=== PATIENT | male | born 1945 | race Caucasian/White ===

== ENCOUNTER 2018-03-17 01:45 | Outpatient (CLI) | payer MEDICARE, BC, SELFPAY ==
[2018-03-17 10:54] LABS: Vitamin B12 554 pg/mL (193-986)
== END 2018-03-17 02:05 ==
PROVIDERS: PCP Emergency Medicine; Visit Provider Emergency Medicine
DX: E53.8 Deficiency of other specified B group vitamins (principal)
CPT/HCPCS: 36415; 82607

== ENCOUNTER 2018-12-03 05:31 | Outpatient (CLI) | payer MEDICARE, BC, SELFPAY ==
[2018-12-03 09:06] LABS: Anion Gap 8.8 mmol/L (3-11); BUN 21 mg/dL (7-18); CO2 26.2 mmol/L (21.0-32.0); CREATININE 1.05 mg/dL (0.70-1.30); Calcium 8.6 mg/dL (8.5-10.1); Chloride 108 mmol/L (98-107); Glucose 105 mg/dL (70-100); Potassium 4.1 mmol/L (3.5-5.1); Sodium 143 mmol/L (136-145); TSH 1.97 uIU/mL (0.358-3.74)
== END 2018-12-03 05:51 ==
PROVIDERS: PCP Emergency Medicine; Visit Provider Emergency Medicine
DX: I10 Essential (primary) hypertension (principal); I48.91 Unspecified atrial fibrillation; E03.9 Hypothyroidism, unspecified
CPT/HCPCS: 36415; 80048; 84443

== ENCOUNTER 2020-01-05 12:57 | Outpatient (REF) | payer MEDICARE, BC, SELFPAY | END 2020-01-05 13:17 | LOC: LBN 12:57 | PROVIDERS: PCP Emergency Medicine; Visit Provider Emergency Medicine | DX: E03.9 Hypothyroidism, unspecified (principal) | CPT/HCPCS: 84443 ==

== ENCOUNTER 2020-03-02 01:40 | Outpatient (CLI) | payer MEDICARE, BC, SELFPAY ==
--- NOTE | 2020-03-02 06:45 | DI.MRI_ITS ---
EXAM: MR CERVICAL SPINE WO CLINICAL HISTORY: acute right arm weakness,R29.898 TECHNIQUE: Multiplanar multisequence MRI of the cervical spine was performed without intravenous con trast. COMPARISON: No exams were available for comparison FINDINGS: BONES: Vertebral body heights are maintained. Intervertebral disc spaces are normal. Alignment is nor mal. Bone marrow signal intensity is within normal limits. Degenerative endplate signal changes are seen from C5-C6 through C7-T1. Note is made of a focus of hyperintense signal on the T1 and T2 weight ed images within the both the C4 and C5 vertebral bodies most consistent with hemangioma or fatty res ts. CERVICAL CORD: Craniovertebral junction is unremarkable. The cervical cord is normal size and signal intensity. SOFT TISSUES: Unremarkable. C2-3: No disc herniation or bulge is identified. No significant central spinal canal or neural forami nal stenosis. C3-4: Prominence of the osteophyte disc complex causing central spinal canal stenosis. There is comp ression of the spinal cord. The AP diameter of the spinal canal is 6.1 mm. Mild narrowing of the ashlee th neural foramen is noted. C4-5: Prominence of the osteophyte disc complex causing central spinal canal stenosis with compressio n of the spinal cord. The AP diameter of the central spinal canal is 6.6 mm. No significant neural foraminal stenosis is present. C5-6: No disc herniation or bulge is identified. Mild degenerative changes of the uncovertebral joint s. There is a no significant central spinal canal stenosis. Mild narrowing of the left neural ofe en is noted. No significant right neural foraminal stenosis. C6-7: Mild prominence of the osteophyte disc complex. No significant central spinal canal or neural foraminal stenosis C7-T1: Mild prominence of the osteophyte disc complex. No significant central spinal canal or neural foraminal stenosis IMPRESSION: 1. Multilevel degenerative changes in the cervical spine. 2. The findings are most marked at C3-4 and C4-C5 where there is central spinal canal stenosis. 3. Multilevel degenerative changes causing central spinal canal and neural foraminal stenosis as desc ribed above. 4. There is normal signal in the spinal cord. DATA REPOSITORY:
== END 2020-03-02 02:00 ==
PROVIDERS: PCP Emergency Medicine; Visit Provider Emergency Medicine
DX: M47.812 Spondylosis without myelopathy or radiculopathy, cervical region (principal); M48.00 Spinal stenosis, site unspecified; R29.898 Other symptoms and signs involving the musculoskeletal system
CPT/HCPCS: 72141

== ENCOUNTER 2020-12-12 14:29 | Outpatient (REF) | payer MEDICARE, BC, SELFPAY ==
[2020-12-12 15:50] LABS: Abs Immature Grans 0.01 10^3/uL (0.0-0.06); Absolute Basophil Count 0.05 10^3/uL (0.0-0.2); Absolute Eosinophil Count 0.15 10^3/uL (0.0-0.7); Absolute Lymphocyte Count 1.29 10^3/uL (1.2-3.4); Absolute Monocyte Count 0.48 10^3/uL (0.1-0.8); Absolute Neutrophil Count 3.37 10^3/uL (1.2-6.7); Basophils % 0.9; Eosinophils % 2.8; HCT 48.4 % (40.0-50.0); HGB 16.4 g/dL (13.5-17.5); Immature Grans % 0.2; Lymphocytes % 24.1; MCH 32.2 pg (27.0-33.0); MCHC 33.9 % (32.0-36.0); MCV 95.1 fL (80-95); MPV 11.1 fL (8.0-11.0); Nucleated RBC 0 %; Platelet Count 202 10^3/uL (130-400); RBC 5.09 10^6/uL (4.36-5.78); RDW 12.2 % (11.8-14.1); RDW-SD 42.5 fL; WBC 5.35 10^3/uL (4.4-10.8)
[2020-12-12 16:26] LABS: ALT 37 U/L (16-63); AST 20 U/L (15-37); Alkaline Phosphatase 70 U/L (46-116); Anion Gap 8.7 mmol/L (3-11); BUN 20 mg/dL (7-18); Bilirubin, Total 1.1 mg/dL (0.2-1.0); CO2 28.3 mmol/L (21.0-32.0); Calcium 9.1 mg/dL (8.5-10.1); Chloride 105 mmol/L (98-107); Glucose 106 mg/dL (74-106); Potassium 4.5 mmol/L (3.5-5.1); Sodium 142 mmol/L (136-145); Total Protein 7.3 g/dL (6.4-8.2); Vitamin B12 517 pg/mL (193-986)
[2020-12-13 15:12] LABS: Albumin 59.2 % (55.8-66.1); Immunotyping, Serum (See Note); Total Protein 7.2 g/dL (6.3-8.2)
[2020-12-14 08:19] LABS: Homocysteine 12.3 umol/L (5.0-13.9)
[2020-12-16 09:32] LABS: Methylmalonic Acid 0.22 nmol/mL (<=0.40)
== END 2020-12-12 14:30 | disposition home or self-care (01) ==
LOC: LBN 14:29
PROVIDERS: PCP Emergency Medicine; Visit Provider Nurse Practitioner Family
DX: G62.9 Polyneuropathy, unspecified (principal); R53.83 Other fatigue; R26.89 Other abnormalities of gait and mobility; R20.0 Anesthesia of skin
CPT/HCPCS: 80053; 80186; 83090; 82607; 84155; 84165; 85025; 86320

== ENCOUNTER 2021-01-05 11:11 | Outpatient (CLI) | payer MEDICARE, BC, SELFPAY ==
[2021-01-05 12:06] LABS: Hemoglobin A1C 5.7 % (<5.7)
[2021-01-05 13:35] LABS: Calculated LDL 117 mg/dL (<100); Cholesterol 178 mg/dL (<200); HDL Cholesterol 34 mg/dL (40-60); TSH 1.75 uIU/mL (0.36-3.74); Triglyceride 136 mg/dL (<150); Vitamin B12 608 pg/mL (193-986)
== END 2021-01-05 11:12 | disposition home or self-care (01) ==
LOC: LOS 11:12
PROVIDERS: PCP Emergency Medicine; Visit Provider Emergency Medicine
DX: E03.9 Hypothyroidism, unspecified (principal); E06.3 Autoimmune thyroiditis; E78.5 Hyperlipidemia, unspecified; E11.9 Type 2 diabetes mellitus without complications; K29.40 Chronic atrophic gastritis without bleeding
CPT/HCPCS: 36415; 80061; 82607; 83036; 84443

== ENCOUNTER 2021-07-28 02:03 | Outpatient (CLI) | payer MEDICARE, BC, SELFPAY ==
--- NOTE | 2021-07-28 11:13 | DI.RAD_ITS ---
Exam(s) XR KNEE RT 3V AP,LAT,SENTHIL EXAM: XR KNEE RT 3V AP,LAT,SENTHIL CLINICAL HISTORY: rt knee pain,. TECHNIQUE: 2D digital imaging was performed. COMPARISON: No exams were available for comparison FINDINGS: Three views of the right knee reveal no evidence of acute fracture or prominent joint effusion. Only minimal degenerative changes evident. No joint space narrowing evident. No osteophytes. Bone dens ity is age-appropriate. IMPRESSION: DATA REPOSITORY: RADIATION DOSE DELIVERED:
--- NOTE | 2021-07-28 11:14 | DI.RAD_ITS ---
Exam(s) XR LUMBAR SPINE COMPLETE EXAM: XR LUMBAR SPINE COMPLETE CLINICAL HISTORY: rt low back pain,m54.50. TECHNIQUE: 2D digital imaging was performed. COMPARISON: CR LUMBAR SPINE COMPLETE from 08/22/2012 FINDINGS: Five views of the lumbosacral spine compared to 2013. There is no evidence of compression fracture or listhesis nor pars defects. There is chronic disc sp kianna narrowing at L3-4 and L5-S1 levels and a lesser amount disc space narrowing is noted at L4-5 and the other levels. There are multilevel anterior osteophytes which have somewhat increased. Mild sco liosis convex left. This has not increased. Epicenter of the scoliosis is at L3-L4 where there is a symmetric narrowing of the right side of this disc space. This was also evident in 2013. Bone densi ty normal. No osseous lesions. Facet arthropathy noted. Bladder calculus evident, this stellate an d measuring approximately 1.9 x 2.0 cm. No obvious calcifications seen along the course of the urete rs nor over the region of the kidneys. IMPRESSION: Chronic multilevel degenerative disc disease and degenerative changes. Only mild change when compare d to 2013 DATA REPOSITORY: RADIATION DOSE DELIVERED:
--- NOTE | 2021-07-28 11:14 | DI.RAD_ITS ---
Exam(s) XR HIP RT COMPLETE AP PELVIS EXAM: XR HIP RT COMPLETE AP PELVIS CLINICAL HISTORY: rt hip pain,m25.551. TECHNIQUE: 2D digital imaging was performed. COMPARISON: CR RIGHT HIP COMPLETE from 08/22/2012 FINDINGS: There is no evidence of right hip fracture nor prominent joint space narrowing. Small ossified densi ty off the superolateral aspect of the acetabulum is unchanged from 2013. Incidentally noted is a stellate calcification in the mid pelvis, not previously present, measuring 2 x 2 cm and probably bladder calculus IMPRESSION: DATA REPOSITORY: RADIATION DOSE DELIVERED:
== END 2021-07-28 02:23 ==
PROVIDERS: PCP Emergency Medicine; Visit Provider Family Medicine
DX: M25.551 Pain in right hip (principal); M54.50 Low back pain, unspecified; M54.9 Dorsalgia, unspecified; M51.36 Other intervertebral disc degeneration, lumbar region
CPT/HCPCS: 73562; 72110; 73502

== ENCOUNTER → 2021-08-23 01:03 | Outpatient (CLI) | payer MEDICARE, BC, SELFPAY ==
--- NOTE | 2021-08-23 07:30 | DI.US_ITS ---
Exam(s) US RENAL EXAM: US RENAL CLINICAL HISTORY: possible bladder stone,n21.0 TECHNIQUE: Ultrasound of both kidneys performed using standard protocol. COMPARISON: No exams were available for comparison FINDINGS: RIGHT KIDNEY: Measures 9.2 cm in length. No cysts evident. Normal cortical thickness and corticomedullary different iation .No solid masses No intrarenal calculi nor hydronephrosis. LEFT KIDNEY: Measures 11.2 cm in length. No cysts evident. Normal cortical thickness and corticomedullary differe ntiaion. No solids masses. No intrarenal calculi nor hydonephrosis. URINARY BLADDER: Prevoid volume is 52 cc Postvoid volume is 13 cc There is suggestion of a 5 millimeter echogenic focus in the distal right ureter and the right ureter ovesical jet was not identified. Only the left ureterovesical Bladder not well visualized due to only 52 cc in the urinary bladder lumen. IMPRESSION: 1. No significant ultrasound findings in the kidneys. 2. 5 millimeter echogenic focus in the region of the distal right ureter and the right ureterovesica l jet was not witnessed (the left ureterovesical jet was witness). This may imply that this is a dis nadege right ureteral calculus. If clinically indicated follow-up CT scan can be performed DATA REPOSITORY:
== END ==
PROVIDERS: PCP Family Medicine; Visit Provider Emergency Medicine
DX: N21.0 Calculus in bladder (principal); N20.1 Calculus of ureter
CPT/HCPCS: 76770

== ENCOUNTER → 2021-11-27 12:42 | Outpatient (CLI) | payer MEDICARE, BC, SELFPAY ==
--- NOTE | 2021-11-27 09:36 | DI.RAD_ITS ---
Exam(s) XR HAND LT COMPLETE EXAM: XR HAND LT COMPLETE CLINICAL HISTORY: r/o psoriatic arthritis, SWELLING HAND, M79.89. TECHNIQUE: 2D digital imaging was performed. COMPARISON: No exams were available for comparison FINDINGS: 3 views No evidence of fracture nor subluxations nor abnormal soft tissue calcifications. No osseous lesions nor erosions. Mild degenerative changes in the DIP joints noted. Incidentally noted is increased density in the lunate bone without architectural loss. Scapholunate distance is normal. Scaphoid unremarkable. IMPRESSION: Mild degenerative changes in the IP joints. No erosions. There is a small degenerative subarticular cysts in the distal medial head of the middle phalanx of the 3rd-middle finger. Incidentally noted is increased density in the lunate bone, possibly related to an element of avascul ar necrosis. Scaphoid bone appears unremarkable. Scapholunate distance unremarkable. DATA REPOSITORY: RADIATION DOSE DELIVERED:
== END ==
PROVIDERS: PCP Family Medicine; Visit Provider Nurse Practitioner Family
DX: M19.042 Primary osteoarthritis, left hand (principal); M89.8X4 Other specified disorders of bone, hand; M85.642 Other cyst of bone, left hand; M79.89 Other specified soft tissue disorders
CPT/HCPCS: 73130

== ENCOUNTER 2021-12-19 03:19 | Outpatient (CLI) | payer MEDICARE, BC, SELFPAY ==
[2021-12-19 12:27] LABS: Abs Immature Grans 0.01 10^3/uL (0.0-0.06); Absolute Basophil Count 0.05 10^3/uL (0.0-0.2); Absolute Eosinophil Count 0.31 10^3/uL (0.0-0.7); Absolute Lymphocyte Count 1.25 10^3/uL (1.2-3.4); Absolute Monocyte Count 0.47 10^3/uL (0.1-0.8); Absolute Neutrophil Count 2.59 10^3/uL (1.2-6.7); Basophils % 1.1; Eosinophils % 6.6; HCT 43.4 % (40.0-50.0); HGB 15.1 g/dL (13.5-17.5); Immature Grans % 0.2; Lymphocytes % 26.7; MCH 32.5 pg (27.0-33.0); MCHC 34.8 % (32.0-36.0); MCV 93 fL (80-95); MPV 11.1 fL (8.0-11.0); Neutrophils % 55.4; Platelet Count 213 10^3/uL (130-400); RBC 4.65 10^6/uL (4.36-5.78); RDW 12.3 % (11.8-14.1); RDW-SD 42.3 fL; WBC 4.68 10^3/uL (4.4-10.8)
[2021-12-19 12:58] LABS: Hemoglobin A1C 5.9 % (<5.7)
[2021-12-19 13:27] LABS: ALT 33 U/L (16-63); AST 19 U/L (15-37); Albumin 3.7 g/dL (3.4-5.0); Alkaline Phosphatase 73 U/L (46-116); BUN 20 mg/dL (7-18); Bilirubin, Total 0.9 mg/dL (0.2-1.0); CREATININE 1.1 mg/dL (0.70-1.30); Chloride 106 mmol/L (98-107); Glucose 90 mg/dL (74-106); Potassium 4.2 mmol/L (3.5-5.1); Sodium 141 mmol/L (136-145); TSH (W/Ref FT4) 2.15 uIU/mL (0.36-3.74); Total Protein 6.6 g/dL (6.4-8.2); Vitamin B12 1610 pg/mL (193-986)
== END 2021-12-19 03:20 | disposition home or self-care (01) ==
LOC: LOS 03:19
PROVIDERS: PCP Family Medicine; Visit Provider Family Medicine
DX: E53.8 Deficiency of other specified B group vitamins (principal); K29.40 Chronic atrophic gastritis without bleeding; E06.3 Autoimmune thyroiditis; E66.9 Obesity, unspecified; R20.2 Paresthesia of skin; R73.01 Impaired fasting glucose; E03.9 Hypothyroidism, unspecified; Z00.00 Encounter for general adult medical examination without abnormal findings
CPT/HCPCS: 36415; 80053; 82607; 83036; 84443; 85025

== ENCOUNTER → 2022-03-22 08:13 | Outpatient (BNVA) | payer MEDICARE, BC, SELFPAY | PROVIDERS: PCP Family Medicine; Referring Provider Family Medicine; Visit Provider Psychiatry & Neurology Neurology | DX: G62.9 Polyneuropathy, unspecified (principal); M48.02 Spinal stenosis, cervical region; K29.40 Chronic atrophic gastritis without bleeding; E53.8 Deficiency of other specified B group vitamins; I48.20 Chronic atrial fibrillation, unspecified | CPT/HCPCS: 99205 ==

== ENCOUNTER → 2022-04-09 08:14 | Outpatient (BNVA) | payer MEDICARE, BC, SELFPAY | PROVIDERS: PCP Family Medicine; Referring Provider Family Medicine; Visit Provider Psychiatry & Neurology Neurology | DX: G62.9 Polyneuropathy, unspecified (principal); M48.02 Spinal stenosis, cervical region; E53.8 Deficiency of other specified B group vitamins; K29.40 Chronic atrophic gastritis without bleeding; I48.20 Chronic atrial fibrillation, unspecified | CPT/HCPCS: 95885; 95908; 99214 ==

== ENCOUNTER → 2022-07-09 13:42 | Outpatient (BNVA) | payer MEDICARE, BC, SELFPAY | PROVIDERS: PCP Family Medicine; Referring Provider Family Medicine; Visit Provider Psychiatry & Neurology Neurology | DX: G62.9 Polyneuropathy, unspecified (principal); M48.02 Spinal stenosis, cervical region; E53.8 Deficiency of other specified B group vitamins; I48.20 Chronic atrial fibrillation, unspecified; R26.9 Unspecified abnormalities of gait and mobility | CPT/HCPCS: 99214 ==

== ENCOUNTER → 2023-01-08 11:04 | Outpatient (BNVA) | payer MEDICARE, BC, SELFPAY | PROVIDERS: PCP Family Medicine; Referring Provider Family Medicine; Visit Provider Psychiatry & Neurology Neurology | DX: G62.9 Polyneuropathy, unspecified (principal); M48.02 Spinal stenosis, cervical region; I48.20 Chronic atrial fibrillation, unspecified; Z79.01 Long term (current) use of anticoagulants; E53.8 Deficiency of other specified B group vitamins | CPT/HCPCS: 99214 ==

== ENCOUNTER 2023-01-31 02:25 | Outpatient (CLI) | payer MEDICARE, BC, SELFPAY ==
[2023-01-31 12:30] LABS: Hemoglobin A1C 5.9 % (<5.7)
[2023-01-31 12:34] LABS: ALT 36 U/L (16-63); AST 21 U/L (15-37); Albumin 3.6 g/dL (3.4-5.0); Alkaline Phosphatase 75 U/L (46-116); BUN 22 mg/dL (7-18); Bilirubin, Total 1.2 mg/dL (0.2-1.0); Calcium 9.2 mg/dL (8.5-10.1); Calculated LDL 134 mg/dL (<100); Chloride 106 mmol/L (98-107); Cholesterol 197 mg/dL (<200); Estimated GFR 78.49 (mL/min/1.73m2); Glucose 120 mg/dL (74-106); HDL Cholesterol 40 mg/dL (40-60); Potassium 4.6 mmol/L (3.5-5.1); Sodium 139 mmol/L (136-145); TSH (W/Ref FT4) 2.24 uIU/mL (0.36-3.74); Total Protein 7.3 g/dL (6.4-8.2); Triglyceride 118 mg/dL (<150)
[2023-01-31 12:53] LABS: Vitamin B12 1889 pg/mL (193-986)
== END 2023-01-31 02:26 | disposition home or self-care (01) ==
LOC: LOS 02:25
PROVIDERS: Psychiatry & Neurology Neurology; PCP Family Medicine; Visit Provider Family Medicine
DX: E03.9 Hypothyroidism, unspecified (principal); R73.01 Impaired fasting glucose; E53.8 Deficiency of other specified B group vitamins; K29.40 Chronic atrophic gastritis without bleeding; E66.9 Obesity, unspecified
CPT/HCPCS: 36415; 80053; 80061; 82607; 83036; 84443

== ENCOUNTER 2023-04-26 06:26 | Day surgery (SDC) | payer MEDICARE, BC, SELFPAY ==
--- NOTE | 2023-04-26 06:14 | W.ANESPRE ---
General Info Date of Service Date Performed: 04/26/23 Height: 6 ft Weight: 128 kg Body Mass Index (BMI): 38.2 Surgical Procedure: Operation Date: 04/26/23 07:40 Proposed Procedure Side Surgeon p Cataract Extraction with IOL Implant Right Laron Gary MD Meds Allergies and Home Medications Allergies Allergy/AdvReac Type Severity Reaction Status Date / Time No Known Allergies Allergy Verified 04/26/23 06:55 Home Medication Medication Instructions Recorded ascorbic acid (vitamin C) 1,000 mg 1 tab PO DAILY 08/20/12 tablet garlic 500 mg capsule 500 mg PO DAILY 03/22/22 turmeric 400 mg capsule 400 mg PO 03/22/22 mecobalamin (vitamin B12) 1,000 1,000 mcg PO DAILY 03/27/22 mcg lozenges apixaban 5 mg tablet (Eliquis) 5 mg PO BID #60 tabs 02/20/23 diltiazem HCl 240 mg 240 mg PO DAILY #90 tab-caps 02/20/23 capsule,extended release 24 hr (Cardizem CD) levothyroxine 50 mcg tablet 50 mcg PO DAILY #90 tabs 02/20/23 (Synthroid) Current Visit Medications: Current Medications Generic Name Dose Route Start Last Admin Trade Name Freq PRN Reason Stop Dose Admin Acetaminophen 1,000 mg 04/26/23 06:00 Acetaminophen 500 Mg Tab PO 05/26/23 05:59 Q4H PRN PRN Balanced Salt Solution 500 ml 04/26/23 06:00 Balanced Salt Soln.-Plus 500 Ml Bag OP 05/26/23 05:59 DIRECTED LYRIC Miscellaneous Medication 0 ml 04/26/23 06:00 Tropicam./Phenyleph. (1/2.5%) 5 Ml Btl OD 05/26/23 05:59 DIRECTED L[facility] Miscellaneous Medication 0 ml 04/26/23 06:00 Prednisolone 1%, Moxifloxacin 0.5%, Bromfenac 0.09% 5ml Btl OD 05/26/23 05:59 DIRECTED LYRIC Tetracaine HCl 0 ml 04/26/23 06:00 Tetracaine 0.5% 4 Ml Btl OD 05/26/23 05:59 DIRECTED LYRIC PFSH Active Problems Active Problems: Problem Status Onset Code Cortical age-related cataract, right eye H25.011 Nuclear age-related cataract, right eye H25.11 Class 2 obesity due to excess calories with body mass index (BMI) of 39.0 to 39.9 in adult E66.09, Z68.39 Risk for coronary artery disease greater than 20% in next 10 years Z91.89 No blood products Z78.9 Gait disorder R26.9 Peripheral neuropathy G62.9 Cervical stenosis of spinal canal M48.02 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 normal colonoscopy in 2017. Thyroiditis, autoimmune (05/14/12) hypothyroid Tobacco Smoking/Tobacco Use Status: Never Passive smoking exposure: Yes Alcohol Alcohol Intake: never Substance Use Substance use: Never Vital Signs and Lab Results Vital Signs Most Recent Vital Signs in EMR: Temp Pulse Resp BP Pulse Ox 36.6 C 100 H 16 147/75 H 99 04/26/23 06:43 04/26/23 06:43 04/26/23 06:43 04/26/23 06:43 04/26/23 06:43 Lab Results Blood Type / Crossmatch: No Data to Display Complete Blood Count: No Data to Display Complete Metabolic Panel: No Data to Display Liver Function Panel: No Data to Display Coagulation Panel: No Data to Display Cardiac Panel: No Data to Display Arterial Blood Gas: No Data to Display Venous Blood Gas: No Data to Display Pancreas Panel: No Data to Display Thyroid Panel: No Data to Display Infectious Disease: No Data to Display Blood Cultures: No Data to Display Toxicology Panel: No Data to Display Anesthesia Assessment and Plan Anesthesia History Personal History: No History of Anesthesia Complications Family History: No Family History of Anesthesia Complications Exercise Tolerance Exercise Tolerance: Metabolic Equivalents>4 Cardiac & Pulmonary Exam Cardiac Exam: Normal S1/S2 Heart Sounds Pulmonary Exam: Clear Bilateral Breath Sounds Implantable Cardiac Device Does patient have a Pacemaker or an ICD?: No Airway Exam Known Difficult Airway: No Mallampati Class: 4 Mouth Opening: Normal (> 3cm) Thyromental Distance: Greater than 3 cm Neck Range of Motion: Full ROM Neck Circumference: Thick Teeth Condition: Normal Dentition ASA Classification ASA Score: ASA 2 Emergency Case?: No NPO Status NPO Status: NPO Clears >2 hours, Solids >8 hours Anesthesia Plan Resuscitation Status: Full Code Anesthesia Technique: MAC Anesthesia Airway Planned: Natural Airway Monitors Used: Standard Monitors Preoperative Comments:: 77 yo male for cataract removal. Sig PMHx: afib (apixaban, dilt), GERD, neuropathy, cervical stenosis, agent orange exposure, hypothyroid (levothyroxine), never smoker, Previous Anes: - colo, fent/midaz, prop, natural airway, no issues.
[2023-04-26 06:43] VITALS: BP 146/75; PULSE 100; RESP 16; TEMP 36.6; O2SAT 99
[2023-04-26] MEDS: Tropicam./Phenyleph. (1/2.5%) 5 ML BTL OD ×3 (06:48→07:05)
[2023-04-26 07:13] VITALS: BMI 38.2
[2023-04-26] MEDS: Lidocaine 1% Pres-Free 5 ML VIAL (07:50)
[2023-04-26] MEDS: Phenylephrine/Lidocaine (15/10) MG/ML 1 ML VIAL (07:54)
[2023-04-26] MEDS: Duovisc Viscoelastic System EACH 1 EACH (07:55)
[2023-04-26] MEDS: Povidone-Iodine Ophth 30 ML BTL (07:56)
[2023-04-26] MEDS: Tetracaine 0.5% 4 ML BTL OD (07:57)
[2023-04-26] MEDS: Balanced Salt Soln.-PLUS 500 ML BAG OP (07:59)
[2023-04-26] MEDS: Trypan Blue 0.06% 0.5 ML SYR (08:00)
[2023-04-26 08:15] VITALS: BP 114/72; PULSE 80; RESP 17; TEMP 36.4; O2SAT 99
--- NOTE | 2023-04-26 08:15 | W.PM.DSUDISC ---
Date of service: 04/26/23 Time of Service: 08:15 Discharge Plan Disposition Patient Disposition: Home Discharge Details Attending Provider: Laron Gary Primary Care Provider: Dionna Vilchis Home Meds and New Rx's Prescriptions: No Action Eliquis 5 mg tablet 5 mg PO BID Qty: 60 12RF diltiazem HCl [Cardizem CD] 240 mg capsule,extended release 24hr 240 mg PO DAILY Qty: 90 3RF levothyroxine [Synthroid] 50 mcg tablet 50 mcg PO DAILY Qty: 90 4RF garlic 500 mg capsule 500 mg PO DAILY Hold Instructions: Changed by Provider turmeric 400 mg capsule 400 mg PO mecobalamin (vitamin B12) 1,000 mcg lozenge 1,000 mcg PO DAILY Rx Instructions: allow to dissolve in mouth OR may chew lightly before swallowing ascorbic acid (vitamin C) 1,000 MG tablet 1 tab PO DAILY Patient Comments: 11/19/17 500 mg summer, 1000 mg winter. si Discharge Instructions Stand Alone Forms: Post-op Topical Cataract, Dennis Lazar (DSU) Discharge Orders Discharge Orders: Discharge Order (Routine); Ordered 04/25/23 Ordered By: Laron Gary DS: Diagnosis Discharge Diagnosis (1) Cortical age-related cataract, right eye: Status: Resolved (2) Nuclear age-related cataract, right eye: Status: Resolved
--- NOTE | 2023-04-26 08:16 | W.PM.OP ---
Date of service: 04/26/23 Time of Service: 08:16 Operative Note Operative Note DATE OF PROCEDURE: 04/26/23 PRE-OP DIAGNOSIS: Dense nuclear/cortical cataract, right eye POST-OP DIAGNOSIS: same PROCEDURE: Cataract extraction using phacoemulsification with intraocular lens implant, right eye SURGEON: Laron Gary ANESTHESIA TYPE: Local By Surgeon and MAC Refer to Anesthesia Record ESTIMATED BLOOD LOSS: 0 PATHOLOGY: none sent COMPLICATIONS: None Patient was transported to: same day Patient's condition: stable Implants: Ethan Clareon [id number] Indications: Progressive decreased vision due to cataract, right eye Procedure Description: CATARACT SURGERY OPERATIVE REPORT PREOPERATIVE DIAGNOSIS: Dense nuclear/cortical cataract, right eye POSTOPERATIVE DIAGNOSIS: Same OPERATION: Cataract extraction using phacoemulsification with posterior chamber intraocular lens implant, right eye. IOL: IOL Splitter Hand/Model: Ethan Clareon [id number] IOL Power: + 22.5 diopters IOL Serial Number: [id number] Optic Diameter: 6.0mm Haptic/Overall Diameter: 13.0mm PHACO INFO: EthanMa-papeterieurion Vision System with OZil and Active Fluidics Cumulative Dispersed Energy (CDE): 7.54 seconds SURGEON: Laron Gary MD, [facility] ANESTHESIA: Monitored Anesthesia Care (MAC), with local sub-tenon's anesthetic infiltration COMPLICATIONS: None SPECIMENS: None INDICATIONS FOR PROCEDURE: The patient is a 77-year-old male with history of diminished visual acuity in his right eye secondary to the development of nuclear/cortical cataract. He is significantly symptomatic that he desires cataract surgery and attempt to improve and maximize his vision. See office notes for detailed information. PROCEDURE: The correct surgical eye was identified and marked as the right eye and the pupil was dilated in the preoperative area using mydriatics and cycloplegics. The dilated pupil size was 6.0 mm. The patient elected to proceed without oral sedation. The patient was brought to the operating room where cardiopulmonary monitoring was instituted and surgical time-out was performed, confirming the correct operative eye and IOL power. Topical anesthesia was administered and ophthalmic povidone-iodine 5% was instilled into the conjunctival fornices. The shalom-ocular area was prepped with Betadine 10% solution and draped in the usual sterile fashion for intraocular surgery, including an aperture drape. A Tegaderm transparent film dressing was cut in half and used to cover the lashes and lid margins. Care was taken to sequester the lashes and lid margins under the Tegaderm dressing. A lid speculum was placed between the lids of the operative eye and the Yahaira-Chris operating microscope was maneuvered into position. Perico scissors were then used to make a conjunctival buttonhole approximately 6mm posterior to the limbus in the inferonasal quadrant. Blunt dissection was carried out to expose bare sclera, and a blunt-tipped sub-tenon?s anesthesia cannula was introduced and passed posteriorly along the globe where non-preserved plain lidocaine was injected into posterior sub-Tenon?s space. A sideport knife was used to make a paracentesis port. VisionBlue was injected into the anterior chamber and allowed to sit for 20 to 30 seconds. Intraocular phenylephrine/lidocaine was injected into the anterior chamber. The anterior chamber was then filled with viscoelastic. A keratome knife was used to construct a two--plane clear corneal tunnel extending 2.0mm into clear cornea. A flap was raised on the anterior capsule and capsulorhexis forceps were used to complete a continuous curvilinear capsulorhexis of 5.0 mm. Balanced salt solution was then used to perform cortical cleaving hydrodissection and nuclear hydrodelineation until the lens could be freely rotated within the capsular bag. The lens nucleus was then disassembled and removed within the capsular bag and iris plane using phacoemulsification. Residual cortical material was removed using the I/A handpiece. The posterior capsule was carefully polished to remove as much residual lens epithelial cells as safely possible. The capsular bag was then inflated and the anterior chamber deepened with cohesive viscoelastic. The lens implant described above was inserted into the capsular bag using the Ethan Autonome Injector. A Kuglen hook was used to dial the IOL into position. Residual viscoelastic was then removed first from posterior to the IOL, then from the anterior chamber using the I/A handpiece. The lens implant was noted to center nicely within the capsular bag. The incisions were stromally hydrated, and the anterior chamber was reformed using BSS. Then 0.5cc of moxifloxacin 1.0mg/ml were injected into the capsular bag and anterior chamber. The incisions were checked with a Weck spear and found to be secure. Several drops of ophthalmic povidone-iodine 5% were then applied to the eye followed by two drops of Imprimis combination prednisolone/moxifloxacin/nepafenac solution. The drapes were removed and a clear plastic protective eye shield was placed over the eye. The patient was then returned to Same Day Surgery in stable condition.
--- NOTE | 2023-04-26 08:34 | W.ANESPOSTOP ---
Postoperative Evaluation Date, Time and Location Date Performed: 04/26/23 Time Performed: 08:20 Patient Location: Day Surgery Unit Vital Signs Most Recent Imported Vital Signs: Most Recent Vital Signs Temp Pulse Resp BP Pulse Ox 36.4 C L 80 17 114/72 99 04/26/23 08:15 04/26/23 08:15 04/26/23 08:15 04/26/23 08:15 04/26/23 08:15 Pain Score Most Recent Pain Score: Most Recent Pain Score Pain Level 0 04/26/23 08:15 Assessment Mental Status: Awake (Alert & Oriented to Patient Baseline) Airway and Respiratory Function: Patent airway with normal (patient baseline) respiratory exam Cardiovascular Function: Hemodynamically Stable Hydration Status: Adequately Hydrated Nausea & Vomiting: No Nausea or Vomiting Pain: Pt. Denies Any Pain Peripheral Nerve Block: Patient did not receive a nerve block
== END 2023-04-26 08:38 | disposition home or self-care (01) ==
LOC: SUR 06:27
PROVIDERS: PCP Family Medicine; Visit Provider Ophthalmology
PROC: (CPT 66984; principal; 2023-04-26 07:30)
DX: H25.011 Cortical age-related cataract, right eye (principal); H25.11 Age-related nuclear cataract, right eye; I48.20 Chronic atrial fibrillation, unspecified; K21.9 Gastro-esophageal reflux disease without esophagitis
CPT/HCPCS: 66984; 00123; V2632

== ENCOUNTER 2023-05-10 06:17 | Day surgery (SDC) | payer MEDICARE, BC, SELFPAY ==
[2023-05-10 06:32] VITALS: BP 145/93; PULSE 95; RESP 16; TEMP 36.6; O2SAT 99
[2023-05-10] MEDS: Tropicam./Phenyleph. (1/2.5%) 5 ML BTL OS ×3 (06:42→06:54)
--- NOTE | 2023-05-10 07:18 | ANES.PREOP_ITS ---
General Info Date of Service Date Performed: 05/10/23 Height: 6 ft Weight: 129.6 kg Body Mass Index (BMI): 38.7 Surgical Procedure: Operation Date: 05/10/23 07:40 Proposed Procedure Side Surgeon p Cataract Extraction with IOL Implant Left Laron Gary MD Meds Allergies and Home Medications Allergies Allergy/AdvReac Type Severity Reaction Status Date / Time No Known Allergies Allergy Verified 05/10/23 06:28 Home Medication Medication Instructions Recorded ascorbic acid (vitamin C) 1,000 mg 1 tab PO DAILY 08/20/12 tablet garlic 500 mg capsule 500 mg PO DAILY 03/22/22 turmeric 400 mg capsule 400 mg PO DAILY 03/22/22 mecobalamin (vitamin B12) 1,000 1,000 mcg PO DAILY 03/27/22 mcg lozenges apixaban 5 mg tablet (Eliquis) 5 mg PO BID #60 tabs 02/20/23 diltiazem HCl 240 mg 240 mg PO DAILY #90 tab-caps 02/20/23 capsule,extended release 24 hr (Cardizem CD) levothyroxine 50 mcg tablet 50 mcg PO DAILY #90 tabs 02/20/23 (Synthroid) Current Visit Medications: Current Medications Generic Name Dose Route Start Last Admin Trade Name Freq PRN Reason Stop Dose Admin Acetaminophen 1,000 mg 05/10/23 06:00 Acetaminophen 500 Mg Tab PO 06/09/23 05:59 Q4H PRN PRN Balanced Salt Solution 500 ml 05/10/23 06:00 Balanced Salt Soln.-Plus 500 Ml Bag OP 06/09/23 05:59 DIRECTED [facility] Miscellaneous Medication 0 ml 05/10/23 06:00 05/10/23 06:54 Tropicam./Phenyleph. (1/2.5%) 5 Ml Btl OS 06/09/23 05:59 1 drp DIRECTED [facility] Administration Miscellaneous Medication 0 ml 05/10/23 06:00 Prednisolone 1%, Moxifloxacin 0.5%, Bromfenac 0.09% 5ml Btl OS 06/09/23 05:59 DIRECTED LYRIC Tetracaine HCl 0 ml 05/10/23 06:00 Tetracaine 0.5% 4 Ml Btl OS 06/09/23 05:59 DIRECTED LYRIC PFSH Active Problems Active Problems: Problem Status Onset Code Cortical age-related cataract, left eye H25.012 Nuclear age-related cataract, left eye H25.12 Cortical age-related cataract, right eye H25.011 Nuclear age-related cataract, right eye H25.11 Class 2 obesity due to excess calories with body mass index (BMI) of 39.0 to 39.9 in adult E66.09, Z68.39 Risk for coronary artery disease greater than 20% in next 10 years Z91.89 No blood products Z78.9 Gait disorder R26.9 Peripheral neuropathy G62.9 Cervical stenosis of spinal canal M48.02 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 normal colonoscopy in 2017. Thyroiditis, autoimmune (05/14/12) hypothyroid Tobacco Smoking/Tobacco Use Status: Never Passive smoking exposure: Yes Alcohol Alcohol Intake: never Substance Use Substance use: Never Vital Signs and Lab Results Vital Signs Most Recent Vital Signs in EMR: Most Recent Vital Signs Temp Pulse Resp BP Pulse Ox 36.6 C 95 H 16 145/93 H 99 05/10/23 06:32 05/10/23 06:32 05/10/23 06:32 05/10/23 06:32 05/10/23 06:32 Lab Results Blood Type / Crossmatch: No Data to Display Complete Blood Count: No Data to Display Complete Metabolic Panel: No Data to Display Liver Function Panel: No Data to Display Coagulation Panel: No Data to Display Cardiac Panel: No Data to Display Arterial Blood Gas: No Data to Display Venous Blood Gas: No Data to Display Pancreas Panel: No Data to Display Thyroid Panel: No Data to Display Infectious Disease: No Data to Display Blood Cultures: No Data to Display Toxicology Panel: No Data to Display Anesthesia Assessment and Plan Anesthesia History Personal History: No History of Anesthesia Complications Family History: No Family History of Anesthesia Complications Exercise Tolerance Exercise Tolerance: Metabolic Equivalents>4 Pertinent Negatives Pertinent Negatives: No Symptoms of GERD Cardiac & Pulmonary Exam Cardiac Exam: Normal S1/S2 Heart Sounds Pulmonary Exam: Clear Bilateral Breath Sounds Implantable Cardiac Device Does patient have a Pacemaker or an ICD?: No Airway Exam Known Difficult Airway: No Mallampati Class: 4 Mouth Opening: Normal (> 3cm) Thyromental Distance: Greater than 3 cm Neck Range of Motion: Full ROM Neck Circumference: Thick Teeth Condition: Normal Dentition ASA Classification ASA Score: ASA 3 Emergency Case?: No NPO Status NPO Status: NPO Clears >2 hours, Solids >8 hours Anesthesia Plan Resuscitation Status: Full Code Anesthesia Technique: MAC Anesthesia Airway Planned: Natural Airway Monitors Used: Standard Monitors
[2023-05-10 07:19] VITALS: BMI 38.7
[2023-05-10] MEDS: Tetracaine 0.5% 4 ML BTL OS (07:28)
[2023-05-10] MEDS: Povidone-Iodine Ophth 30 ML BTL (07:28)
[2023-05-10] MEDS: Balanced Salt Soln.-PLUS 500 ML BAG OP (07:33)
[2023-05-10] MEDS: Lidocaine 1% Pres-Free 5 ML VIAL (07:34)
[2023-05-10] MEDS: Duovisc Viscoelastic System EACH 1 EACH (07:34)
[2023-05-10] MEDS: Trypan Blue 0.06% 0.5 ML SYR (07:36)
--- NOTE | 2023-05-10 07:55 | W.PM.DSUDISC ---
Date of service: 05/10/23 Time of Service: 07:56 Discharge Plan Disposition Patient Disposition: Home Discharge Details Attending Provider: Laron Gary Primary Care Provider: Dionna Vilchis Home Meds and New Rx's Prescriptions: No Action Eliquis 5 mg tablet 5 mg PO BID Qty: 60 12RF diltiazem HCl [Cardizem CD] 240 mg capsule,extended release 24hr 240 mg PO DAILY Qty: 90 3RF levothyroxine [Synthroid] 50 mcg tablet 50 mcg PO DAILY Qty: 90 4RF garlic 500 mg capsule 500 mg PO DAILY Hold Instructions: Changed by Provider turmeric 400 mg capsule 400 mg PO DAILY mecobalamin (vitamin B12) 1,000 mcg lozenge 1,000 mcg PO DAILY Rx Instructions: allow to dissolve in mouth OR may chew lightly before swallowing ascorbic acid (vitamin C) 1,000 MG tablet 1 tab PO DAILY Patient Comments: 11/19/17 500 mg summer, 1000 mg winter. si Discharge Instructions Stand Alone Forms: Post-op Topical Cataract, Dennis Lazar (DSU) Discharge Orders Discharge Orders: Discharge Order (Routine); Ordered 05/10/23 Ordered By: Laron Gary DS: Diagnosis Discharge Diagnosis (1) Cortical age-related cataract, left eye: Status: Resolved (2) Nuclear age-related cataract, left eye: Status: Resolved
--- NOTE | 2023-05-10 07:56 | W.PM.OP ---
Date of service: 05/10/23 Time of Service: 07:56 Operative Note Operative Note DATE OF PROCEDURE: 05/10/23 PRE-OP DIAGNOSIS: Nuclear/cortical cataract, left eye POST-OP DIAGNOSIS: same PROCEDURE: Cataract extraction using phacoemulsification with intraocular lens implant, left eye SURGEON: Laron Gary ANESTHESIA TYPE: Local By Surgeon and MAC Refer to Anesthesia Record PATHOLOGY: none sent COMPLICATIONS: None Patient was transported to: same day Patient's condition: stable Implants: Ethan Clareon [id number] Indications: Progressive decreased vision due to cataract, left eye Procedure Description: CATARACT SURGERY OPERATIVE REPORT PREOPERATIVE DIAGNOSIS: Nuclear/cortical cataract, left eye POSTOPERATIVE DIAGNOSIS: Same OPERATION: Cataract extraction using phacoemulsification with posterior chamber intraocular lens implant, left eye. IOL: IOL Expander Machine Operator/Model: Ethan Clareon [id number] IOL Power: + 22.0 diopters IOL Serial Number: [id number] Optic Diameter: 6.0mm Haptic/Overall Diameter: 13.0mm PHACO INFO: Ethan Medical Compression Systemsurion Vision System with OZil and Active Fluidics Cumulative Dispersed Energy (CDE): 7.40 seconds SURGEON: Laron Gary MD, [facility] ANESTHESIA: Monitored Anesthesia Care (MAC), with local sub-tenon's anesthetic infiltration COMPLICATIONS: None SPECIMENS: None INDICATIONS FOR PROCEDURE: The patient is a 77-year-old male with history of diminished visual acuity in both eyes secondary to the development of bilateral nuclear/cortical cataract. He has already undergone cataract surgery in the right eye and is doing well postoperatively. He now presents for cataract surgery in the left eye. See office notes for detailed information. PROCEDURE: The correct surgical eye was identified and marked as the left eye and the pupil was dilated in the preoperative area using mydriatics and cycloplegics. The dilated pupil size was 7.0 mm. The patient elected to proceed without oral sedation. The patient was brought to the operating room where cardiopulmonary monitoring was instituted and surgical time-out was performed, confirming the correct operative eye and IOL power. Topical anesthesia was administered and ophthalmic povidone-iodine 5% was instilled into the conjunctival fornices. The shalom-ocular area was prepped with Betadine 10% solution and draped in the usual sterile fashion for intraocular surgery, including an aperture drape. A Tegaderm transparent film dressing was cut in half and used to cover the lashes and lid margins. Care was taken to sequester the lashes and lid margins under the Tegaderm dressing. A lid speculum was placed between the lids of the operative eye and the Ethan LuxOR Revalia operating microscope was maneuvered into position. Perico scissors were then used to make a conjunctival buttonhole approximately 6mm posterior to the limbus in the inferonasal quadrant. Blunt dissection was carried out to expose bare sclera, and a blunt-tipped sub-tenon?s anesthesia cannula was introduced and passed posteriorly along the globe where non-preserved plain lidocaine was injected into posterior sub-Tenon?s space. A sideport knife was used to make a paracentesis port. VisionBlue was injected into the anterior chamber and allowed to sit for 20 seconds. Intraocular phenylephrine/lidocaine was injected into the anterior chamber. The anterior chamber was then filled with viscoelastic. A keratome knife was used construct a two-plane clear corneal tunnel extending 2.0mm into clear cornea. A flap was raised on the anterior capsule and capsulorhexis forceps were used to complete a continuous curvilinear capsulorhexis of 5.0 mm. Balanced salt solution was then used to perform cortical cleaving hydrodissection and nuclear hydrodelineation until the lens could be freely rotated within the capsular bag. The lens nucleus was then disassembled and removed within the capsular bag and iris plane using phacoemulsification. Residual cortical material was removed using the irrigation/aspiration handpiece. The posterior capsule was carefully polished to remove as much residual lens epithelial cells as safely possible. The capsular bag was then inflated and the anterior chamber deepened with viscoelastic. The lens implant described above was inserted into the capsular bag using the Ethan Autonome Injector. A Kuglen hook was used to dial the IOL into position. Residual viscoelastic was then removed first from posterior to the IOL, then from the anterior chamber using the I/A handpiece. The lens implant was noted to center nicely within the capsular bag. The incisions were stromally hydrated, and the anterior chamber was reformed using BSS. Then 0.5cc of moxifloxacin 1.0mg/ml were injected into the capsular bag and anterior chamber. The incisions were checked with a Weck spear and found to be secure. Several drops of ophthalmic povidone-iodine 5% were then applied to the eye followed by two drops of Imprimis combination prednisolone/moxifloxacin/nepafenac solution. The drapes were removed and a clear plastic protective eye shield was placed over the eye. The patient was then returned to Same Day Surgery in stable condition.
[2023-05-10 08:03] VITALS: BP 120/92; PULSE 74; RESP 16; TEMP 36.5; O2SAT 99
--- NOTE | 2023-05-10 08:07 | W.ANESPOSTOP ---
Postoperative Evaluation Date, Time and Location Date Performed: 05/10/23 Time Performed: 08:07 Patient Location: Day Surgery Unit Vital Signs Most Recent Imported Vital Signs: Most Recent Vital Signs Temp Pulse Resp BP Pulse Ox 36.5 C 74 16 120/92 H 99 05/10/23 08:03 05/10/23 08:03 05/10/23 08:03 05/10/23 08:03 05/10/23 08:03 Pain Score Most Recent Pain Score: Most Recent Pain Score Pain Level 0 05/10/23 08:03 Assessment Mental Status: Awake (Alert & Oriented to Patient Baseline) Airway and Respiratory Function: Patent airway with normal (patient baseline) respiratory exam Cardiovascular Function: Hemodynamically Stable Hydration Status: Adequately Hydrated Nausea & Vomiting: No Nausea or Vomiting Pain: Pt. Denies Any Pain Peripheral Nerve Block: Patient did not receive a nerve block
== END 2023-05-10 08:22 | disposition home or self-care (01) ==
LOC: SUR 06:17
PROVIDERS: PCP Family Medicine; Visit Provider Ophthalmology
PROC: (CPT 66984; principal; 2023-05-10 07:30)
DX: H25.012 Cortical age-related cataract, left eye (principal); H25.12 Age-related nuclear cataract, left eye; Z98.41 Cataract extraction status, right eye
CPT/HCPCS: 66984; 00123; V2632

== ENCOUNTER → 2023-07-09 10:25 | Outpatient (BNVA) | payer MEDICARE, BC, SELFPAY | PROVIDERS: PCP Family Medicine; Referring Provider Family Medicine; Visit Provider Psychiatry & Neurology Neurology | DX: R26.9 Unspecified abnormalities of gait and mobility (principal); I48.20 Chronic atrial fibrillation, unspecified; M48.02 Spinal stenosis, cervical region; G62.9 Polyneuropathy, unspecified; E53.8 Deficiency of other specified B group vitamins; K29.40 Chronic atrophic gastritis without bleeding | CPT/HCPCS: 99214 ==

== ENCOUNTER 2023-11-07 11:06 | Emergency (ER) | payer OTHER, MEDICARE, BC, SELFPAY ==
--- NOTE | 2023-11-07 | DI.RAD_ITS ---
Exam(s) XR SHOULDER RT COMPLETE 2+V EXAM: XR SHOULDER RT COMPLETE 2+V CLINICAL HISTORY: No Charge. TECHNIQUE: 2D digital imaging was performed of the right shoulder. Five images were obtained. AP, Grashey, Y-view and axillary views were obtained. COMPARISON: No exams were available for comparison FINDINGS: BONES: No acute fracture is present. No bony destructive lesion is seen. JOINTS: No dislocation present. There are degenerative changes seen at the acromioclavicular joint. The glenohumeral joint is well maintained. SOFT TISSUE: There is a soft tissue calcification adjacent to the humeral head laterally which may re flect calcific tendinitis. IMPRESSION: No acute abnormality. DATA REPOSITORY: RADIATION DOSE DELIVERED:
[2023-11-07 11:13] VITALS: BP 183/73; PULSE 102; RESP 24; TEMP 36.5; O2SAT 96
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
== END 2023-11-07 13:07 | disposition home or self-care (01) ==
PROVIDERS: Emergency Provider Emergency Medicine; PCP Family Medicine
DX: S20.212A Contusion of left front wall of thorax, initial encounter (principal); S50.12XA Contusion of left forearm, initial encounter; I48.20 Chronic atrial fibrillation, unspecified; E03.9 Hypothyroidism, unspecified; V43.52XA Car driver injured in collision with other type car in traffic accident, initial encounter
CPT/HCPCS: 99283; 71046; 73030; 73090

== ENCOUNTER 2024-02-19 02:09 | Outpatient (CLI) | payer MEDICARE, BC, SELFPAY ==
[2024-02-19 08:40] LABS: Abs Immature Grans 0.01 10^3/uL (0.0-0.06); Absolute Basophil Count 0.07 10^3/uL (0.0-0.2); Absolute Eosinophil Count 0.42 10^3/uL (0.0-0.7); Absolute Lymphocyte Count 1.83 10^3/uL (1.2-3.4); Absolute Monocyte Count 0.57 10^3/uL (0.1-0.8); Absolute Neutrophil Count 2.39 10^3/uL (1.2-6.7); Basophils % 1.3 %; Eosinophils % 7.9 %; HCT 47.2 % (40.0-50.0); HGB 15.7 g/dL (13.5-17.5); Immature Grans % 0.2 %; Lymphocytes % 34.6 %; MCH 32.2 pg (27.0-33.0); MCHC 33.3 % (32.0-36.0); MCV 97 fL (80-95); MPV 10.4 fL (8.0-11.0); Monocytes % 10.8 %; Neutrophils % 45.2 %; Platelet Count 202 10^3/uL (130-400); RBC 4.87 10^6/uL (4.36-5.78); RDW 12.4 % (11.8-14.1); RDW-SD 44.7 fL; WBC 5.29 10^3/uL (4.4-10.8)
[2024-02-19 08:47] LABS: Hemoglobin A1C 5.7 % (<5.7)
[2024-02-19 09:37] LABS: ALT 37 U/L (16-63); AST 23 U/L (15-37); Albumin 3.5 g/dL (3.4-5.0); Alkaline Phosphatase 90 U/L (46-116); BUN 21 mg/dL (7-18); Bilirubin, Total 1.06 mg/dL (0.2-1.0); CREATININE 1.1 mg/dL (0.70-1.30); Calcium 9.4 mg/dL (8.5-10.1); Calculated LDL 137 mg/dL (<100); Chloride 105 mmol/L (98-107); Cholesterol 195 mg/dL (<200); Estimated GFR 69.57 (mL/min/1.73m2); Glucose 123 mg/dL (74-106); HDL Cholesterol 42 mg/dL (40-60); Potassium 4.4 mmol/L (3.5-5.1); Sodium 140 mmol/L (136-145); TSH (W/Ref FT4) 3.54 uIU/mL (0.36-3.74); Total Protein 7.6 g/dL (6.4-8.2); Triglyceride 82 mg/dL (<150); Vitamin B12 1824 pg/mL (193-986)
== END 2024-02-19 02:10 | disposition home or self-care (01) ==
LOC: LBO 02:09
PROVIDERS: PCP Family Medicine; Visit Provider Family Medicine
DX: E03.9 Hypothyroidism, unspecified (principal); E06.3 Autoimmune thyroiditis; Z13.6 Encounter for screening for cardiovascular disorders; E66.01 Morbid (severe) obesity due to excess calories; Z68.41 Body mass index [BMI] 40.0-44.9, adult; E53.8 Deficiency of other specified B group vitamins; K29.40 Chronic atrophic gastritis without bleeding; R73.01 Impaired fasting glucose; Z00.00 Encounter for general adult medical examination without abnormal findings
CPT/HCPCS: 36415; 80053; 80061; 82306; 82607; 83036; 84443; 85025

== ENCOUNTER → 2024-07-07 09:36 | Outpatient (BNVA) | payer MEDICARE, BC, SELFPAY | PROVIDERS: PCP Family Medicine; Visit Provider Psychiatry & Neurology Neurology | DX: G56.01 Carpal tunnel syndrome, right upper limb (principal); G56.02 Carpal tunnel syndrome, left upper limb; G62.9 Polyneuropathy, unspecified; M48.02 Spinal stenosis, cervical region; R26.9 Unspecified abnormalities of gait and mobility | CPT/HCPCS: 95910; 99215 ==

== ENCOUNTER → 2024-09-28 09:49 | Outpatient (BNVA) | payer MEDICARE, BC, SELFPAY | PROVIDERS: PCP Family Medicine; Referring Provider Family Medicine; Visit Provider Student in an Organized Health Care Education/Training Program | DX: G56.03 Carpal tunnel syndrome, bilateral upper limbs (principal) | CPT/HCPCS: 99213 ==

== ENCOUNTER → 2024-11-03 08:52 | Outpatient (BNVA) | payer MEDICARE, BC, SELFPAY | PROVIDERS: PCP Family Medicine; Visit Provider Psychiatry & Neurology Neurology | DX: E53.8 Deficiency of other specified B group vitamins (principal); K29.40 Chronic atrophic gastritis without bleeding; I48.20 Chronic atrial fibrillation, unspecified; M48.02 Spinal stenosis, cervical region; G62.9 Polyneuropathy, unspecified; R26.9 Unspecified abnormalities of gait and mobility; G56.01 Carpal tunnel syndrome, right upper limb; G56.02 Carpal tunnel syndrome, left upper limb | CPT/HCPCS: 99214 ==

== ENCOUNTER → 2024-11-30 09:43 | Outpatient (BNVA) | payer MEDICARE, BC, SELFPAY | PROVIDERS: PCP Family Medicine; Referring Provider Family Medicine; Visit Provider Student in an Organized Health Care Education/Training Program | DX: G56.03 Carpal tunnel syndrome, bilateral upper limbs (principal); M48.02 Spinal stenosis, cervical region | CPT/HCPCS: 99213; 99214 ==

== ENCOUNTER 2024-12-23 10:36 | Day surgery (SDC) | payer MEDICARE, BC, SELFPAY ==
--- NOTE | 2024-12-23 07:36 | W.PM.DSUDISC ---
Date of service: 12/23/24 Discharge Plan Disposition Patient Disposition: Home Condition: Good Discharge Details Reason For Visit: R ECTR Attending Provider: Noe Mccabe Primary Care Provider: Dionna Vilchis Home Meds and New Rx's Prescriptions: New acetaminophen 500 mg tablet 1,000 mg PO TID Qty: 90 0RF Continued Eliquis 5 mg tablet 5 mg PO BID Qty: 60 12RF levothyroxine [Synthroid] 50 mcg tablet 50 mcg PO DAILY Qty: 90 4RF cholecalciferol (vitamin D3) 25 mcg (1,000 unit) capsule 25 mcg PO DAILY mecobalamin (vitamin B12) 1,000 mcg lozenge 1,000 mcg PO DAILY Rx Instructions: allow to dissolve in mouth OR may chew lightly before swallowing ascorbic acid (vitamin C) 1,000 MG tablet 1 tab PO DAILY Patient Comments: 11/19/17 500 mg summer, 1000 mg winter. si diltiazem HCl [Cardizem CD] 240 mg capsule,extended release 24hr 240 mg PO DAILY Qty: 90 3RF Discharge Instructions Stand Alone Forms: Estelle Elizabeth Tunnel Release Referrals: Noe Mccabe MD [ [facility] STAFF PHYSICIAN, Orthopaedic Surgical] Activity:: Activity as Tolerated Remove Dressings/Wound Care:: 48 hours Shower/Bathe:: 48 hours Diet:: As Tolerated Discharge Orders Discharge Orders: Discharge Order (Routine); Ordered 12/23/24 Ordered By: Brandon Bruce DS: Diagnosis Discharge Diagnosis (1) Carpal tunnel syndrome of right wrist: Status: Acute
[2024-12-23 10:45] VITALS: BP 157/107; PULSE 96; RESP 18; TEMP 36.2; O2SAT 99
[2024-12-23] MEDS: Cephalexin 500 MG CAP 1000 MG PO (11:20)
[2024-12-23] MEDS: Sodium Bicarbonate 50 MEQ/50 ML VIAL (12:52)
[2024-12-23] MEDS: Lidocaine 1% Pres-Free W/EPI 1/200,000 10 ML VIAL (12:52)
[2024-12-23 13:09] VITALS: BP 131/88; PULSE 90; RESP 18; TEMP 36.2; O2SAT 97
--- NOTE | 2024-12-23 14:44 | W.PM.OP ---
Operative Note Operative Note PRE-OP DIAGNOSIS: Left Carpal Tunnel Syndrome POST-OP DIAGNOSIS: same PROCEDURE: Left Endoscopic Carpal Tunnel Release SURGEON: Noe Mccabe ANESTHESIA TYPE: Local By Surgeon Refer to Anesthesia Record ESTIMATED BLOOD LOSS: 0 PATHOLOGY: none sent TOURNIQUET TIME: 4 COMPLICATIONS: None Patient was transported to: same day Patient's condition: stable Indications: I have seen Venancio in clinic for symptoms of carpal tunnel syndrome. The numbness, tingling, and pain limited function. Clinical exam findings with nerve conduction tests confirmed the diagnosis of carpal tunnel syndrome. Nonoperative measures such as bracing, time, activity modifications had been tried but disability and pain persisted. I discussed carpal tunnel release with the patient. I reviewed the risks of the procedure to include, but not limited to, bleeding, infection, pain, stiffness, incomplete release, damage to nerves or vessels, persistent numbness, recurrence. Despite these risks, the patient elected to proceed. Findings: There was tightened carpal tunnel. This was dilated and released successfully with the endoscopic with increased space within the tunnel. The antebrachial fascia was released proximally freeing the median nerve at the wrist. Procedure Description: Venancio was greeted in the preoperative holding area where the correct side was identified and marked. The consent was reviewed with the patient and signed. The history and physical was updated. All questions were answered. He was taken back to the operating room. The patient was placed into the supine position on the operating room table with the left arm on an arm board. A nonsterile tourniquet was placed high onto the arm. All bony prominences were well padded. Prophylactic antibiotics in the form of Cefazolin were administered. The left arm was then prepped with Chloraprep and draped in a standard fashion with stockinette and extremity drape. A timeout to confirm correct identity, side and site, procedure, allergies, anesthesia, and medical concerns was performed. The surgical site was marked in the volar wrist creases in line with the radial border of the fourth ray. This area was anesthetized with approximately 6cc of 1% Lidocaine. The limb was then exsanguinated with an Esmarch. The skin was incised with a 15 blade, approximately 1cm. The skin only was cut and the deeper tissue was dissected bluntly with a tenotomy scissor, avoiding passing nerve and venous structures. The fascia was penetrated and opened bluntly. A two-prong skin hook was placed under this proximal fascial edge. A series of hamate finders were used to identify and dilate the carpal tunnel. Synovial elevator was used to free synovial attachments to the underside of the transverse carpal ligament. My thumb was kept in the palm to rosaura the distal extent of the carpal tunnel and correctly position the hand. The Microaire endoscope was inserted without difficulty and without resistance. Excellent visualization showed horizontally running fibers of the transverse carpal ligament (TCL). The distal extent of the TCL was visualized and the end of the scope palpated with the thumb. The blade was elevated and withdrawn from distal to proximal. The TCL was split into two flaps. The endoscope was reinserted to confirm complete release and any remnant ligament was incised. The scope was withdrawn and the proximal aspect of the carpal tunnel was grossly inspected and appeared release with the median nerve visible. The antebrachial fascia at the level of the wrist was then freed from the overlying skin and then the underlying median nerve with blunt dissection. This was transected longitudinally for about 3cm proximal to the wrist incision. The wound was then irrigated with easy flow of irrigant distally and proximally. The incision was closed with a single 4-0 Nylon suture. The wound was dressed with Xeroform, Gauze, Kerlix and Hima. The tourniquet was deflated with the initial dressing and held with some pressure. Blood flow returned easily to all digits with capillary refill less than 2 seconds. The patient tolerated the procedure well and was returned to the Same Day Surgery area in a stable condition suffering no known complication. Date of Procedure: 12/23/24
== END 2024-12-23 13:35 | disposition home or self-care (01) ==
LOC: SUR 10:37
PROVIDERS: PCP Family Medicine; Visit Provider Student in an Organized Health Care Education/Training Program
PROC: 01N54ZZ Release Median Nerve, Percutaneous Endoscopic Approach (ICD-10-PCS; CPT 29848; principal; 2024-12-23 13:30)
DX: G56.01 Carpal tunnel syndrome, right upper limb (principal)
CPT/HCPCS: 29848; J2004

== ENCOUNTER → 2025-01-01 09:31 | Outpatient (BNVA) | payer MEDICARE, BC, SELFPAY | PROVIDERS: PCP Family Medicine; Referring Provider Family Medicine; Visit Provider Physician Assistant | DX: G56.01 Carpal tunnel syndrome, right upper limb (principal) | CPT/HCPCS: 99024 ==

== ENCOUNTER 2025-02-11 00:48 | Outpatient (CLI) | payer MEDICARE, BC, SELFPAY ==
[2025-02-11 14:26] LABS: Abs Immature Grans 0.02 10^3/uL (0.0-0.06); HCT 44.0 % (40.0-50.0); HGB 14.6 g/dL (13.5-17.5); Immature Grans % 0.3 %; MCH 31.4 pg (27.0-33.0); MCHC 33.2 % (32.0-36.0); MCV 95 fL (80-95); MPV 10.6 fL (8.0-11.0); Platelet Count 202 10^3/uL (130-400); RBC 4.65 10^6/uL (4.36-5.78); RDW 12.1 % (11.8-14.1); RDW-SD 41.9 fL; WBC 5.92 10^3/uL (4.4-10.8)
[2025-02-11 15:09] LABS: ALT 36 U/L (16-63); AST 24 U/L (15-37); Albumin 3.4 g/dL (3.4-5.0); Alkaline Phosphatase 82 U/L (46-116); Anion Gap 6.8 mmol/L (3-11); BUN 21 mg/dL (7-18); Bilirubin, Total 1.0 mg/dL (0.2-1.0); CO2 28.2 mmol/L (21.0-32.0); Calcium 9.1 mg/dL (8.5-10.1); Calculated LDL 141 mg/dL (<100); Chloride 106 mmol/L (98-107); Cholesterol 201 mg/dL (<200); Estimated GFR 77.52 (mL/min/1.73m2); Glucose 121 mg/dL (74-106); HDL Cholesterol 36 mg/dL (>or=40); Potassium 4.5 mmol/L (3.5-5.1); Sodium 141 mmol/L (136-145); TSH (W/Ref FT4) 3.47 uIU/mL (0.36-3.74); Total Protein 7.2 g/dL (6.4-8.2); Triglyceride 122 mg/dL (<150); Vitamin B12 1018 pg/mL (193-986)
[2025-02-11 20:01] LABS: Hemoglobin A1C 5.8 % (<5.7)
== END 2025-02-11 00:49 | disposition home or self-care (01) ==
LOC: LOS 00:48
PROVIDERS: PCP Family Medicine; Visit Provider Family Medicine
DX: R73.01 Impaired fasting glucose (principal); E66.01 Morbid (severe) obesity due to excess calories; Z68.41 Body mass index [BMI] 40.0-44.9, adult; Z00.00 Encounter for general adult medical examination without abnormal findings; I48.20 Chronic atrial fibrillation, unspecified; E03.9 Hypothyroidism, unspecified; E06.3 Autoimmune thyroiditis; E53.8 Deficiency of other specified B group vitamins; K29.40 Chronic atrophic gastritis without bleeding; Z13.6 Encounter for screening for cardiovascular disorders
CPT/HCPCS: 36415; 80053; 80061; 82607; 83036; 84443; 85025

== ENCOUNTER → 2025-03-04 12:53 | Outpatient (BNVA) | payer MEDICARE, BC, SELFPAY | PROVIDERS: PCP Family Medicine; Referring Provider Family Medicine; Visit Provider Student in an Organized Health Care Education/Training Program | DX: Z47.89 Encounter for other orthopedic aftercare (principal); G56.01 Carpal tunnel syndrome, right upper limb | CPT/HCPCS: 99024 ==

== ENCOUNTER → 2025-04-19 12:51 | Outpatient (BNVA) | payer MEDICARE, BC, SELFPAY | PROVIDERS: PCP Family Medicine; Referring Provider Family Medicine; Visit Provider Student in an Organized Health Care Education/Training Program | DX: Z47.1 Aftercare following joint replacement surgery (principal); G56.01 Carpal tunnel syndrome, right upper limb; R20.2 Paresthesia of skin; G62.9 Polyneuropathy, unspecified; M48.02 Spinal stenosis, cervical region | CPT/HCPCS: 99212 ==